=== PATIENT | female | born 1985 | race Caucasian/White ===

== ENCOUNTER 2021-05-14 19:37 | Emergency (ER) | payer OTHER, SELFPAY ==
--- NOTE | ~2021-05-14 | XR_ITS ---
EXAMINATION: XR ANKLE, LEFT CLINICAL INFORMATION: Fall. Pain. Swelling. COMPARISON: None TECHNIQUE: AP, lateral, and mortise views of the left ankle. FINDINGS: Soft tissue swelling is seen more so laterally. Underlying bony structures are unremarkable. I do not appreciate any acute fracture or dislocation. Ankle mortise appears intact. Incidental tiny calcaneal heel spur at the attachment point of the plantar aponeurosis. XR/XR ankle LT min 3V IMPRESSION: Lateral soft tissue swelling but no acute fracture or dislocation
[2021-05-14 19:52] VITALS: BP 155/97; PULSE 63; RESP 16; TEMP 36.8; O2SAT 100; BMI 25.7
--- NOTE | 2021-05-14 20:24 | ED.LOWEXIN ---
HPI - Extremity Injury (Lower) General Chief Complaint: Extremity Injury, Lower Stated Complaint: ankle inj Time Seen by Provider: 05/14/21 20:24 Source: patient Mode of arrival: ambulatory Limitations: no limitations History of Present Illness HPI Narrative: rolled left ankle yesterday now with increased swelling and pain. Patient heard a crack and pop complaint: ankle injury Onset (ago): day(s) Injury: Left: ankle Place: street/outdoors Severity: mild Relieving factors: nothing Exacerbating factors: weight bearing Associated symptoms: snap/pop sensation Related Data Previous Rx's Medication Instructions Recorded naproxen 500 mg tablet (Naprosyn) 500 mg PO BID #20 tab 05/14/21 Allergies Allergy/AdvReac Type Severity Reaction Status Date / Time Penicillins Allergy Unknown Verified 05/14/21 20:00 Review of Systems Constitutional: Constitutional: Reports no additional constitutional complaints Eyes: Eyes: Reports no additional eye complaints ENT: Denies dizziness Cardiovascular: Cardiovascular: Reports no additional cardiovascular complaints Respiratory: Respiratory: Reports as per HPI Gastrointestinal: Gastrointestinal: Reports no additional gastrointestinal complaints Genitourinary: Genitourinary: Reports no additional female genitourinary complaints Musculoskeletal: Musculoskeletal: Reports no additional musculoskeletal complaints Integumentary/Breasts: Skin/Breast: Denies rash Neurologic: Reports system reviewed and no additional complaints, except as documented, Denies dizziness and Denies Sensory deficit (Neuro) Psychiatric: Psychiatric: Denies anxiety [facility] Past Medical History Medical History Crohn's disease Hypertension Social History Social History Advance Directives: No Advance Directives Information Provided: No Patient : No Physical Exam Vital Signs: Vital Signs: Last Vital Signs Temp 98.2 F 05/14/21 19:52 Pulse 63 05/14/21 19:52 Resp 16 05/14/21 19:52 BP 155/97 H 05/14/21 19:52 Pulse Ox 100 05/14/21 19:52 Body Mass Index 25.7 Const: General: healthy appearing Nutritional Appearance: average body habitus Orientation/consciousness: oriented to person and patient oriented x3 Limitations: no limitations HENMT: Head: Yes normal to inspection Ears: external ears normal General nose exam: Normal external nose present Mouth: Normal oral and palatal mucosa present and oropharynx normal Throat: Yes posterior oropharynx normal Eyes: General: appearance normal, both eyes and all related structures Neck: Other: supple Neck: Yes normal visual inspection Chest: Chest palpation & inspection: normal inspection of the chest Resp: Auscultation: clear to auscultation bilaterally Cardio: Jugular venous distension: no JVD Rate: regular rate Rhythm: regular rhythm Heart sounds: S1 normal heart sound present and S2 normal heart sound present GI: Inspection: Yes normal to inspection Palpation (GI): Soft to palpation, nontender and No hepatosplenomegaly present Auscultation: normal bowel sounds : General: Yes no CVA tenderness Back/Spine/Pelvis: Back: no CVA tenderness Skin: General skin exam: no rashes or lesions noted Neuro: General: oriented to person and patient oriented x3 Cranial nerves: Yes CN's II-XII intact bilaterally Motor exam (neuro): 5/5 motor strength present throughout Sensory Exam: No Sensory deficit (Neuro) Extrem: Other: left ankle with swelling and ecchymosis Psych: Appearance: grossly normal Course Reevaluation(s) Reevaluation #1: no fracture, impression is ankle sprain Time: 20:52 MDM - Extremity Injury (Lower) Imaging Data left ankle: Radiologist's impression: IMPRESSION: Lateral soft tissue swelling but no acute fracture or dislocation Discharge Plan Discharge Clinical Impression: Ankle sprain and strain Patient Disposition: Home, Self-Care Instructions: Ankle Sprain (ED) Prescriptions: New naproxen [Naprosyn] 500 mg tablet 500 mg PO BID Qty: 20 RF: 0 Referrals: Todd Elmore MD [Primary Care Provider] - 1 week
== END 2021-05-14 21:36 | disposition home or self-care (01) ==
PROVIDERS: Emergency Provider Emergency Medicine; PCP Internal Medicine
DX: S93.402A Sprain of unspecified ligament of left ankle, initial encounter (principal); M25.572 Pain in left ankle and joints of left foot; X50.1XXA Overexertion from prolonged static or awkward postures, initial encounter; Y93.9 Activity, unspecified; Y92.9 Unspecified place or not applicable; Y99.9 Unspecified external cause status; Z79.899 Other long term (current) drug therapy
CPT/HCPCS: 73610; 99283; 99284

== ENCOUNTER 2023-11-10 15:33 | Emergency (ER) | payer OTHER, SELFPAY ==
--- NOTE | ~2023-11-10 | XR_ITS ---
EXAMINATION: XR SHOULDER, LEFT CLINICAL INFORMATION: Pain, injury. COMPARISON: None available. TECHNIQUE: Three views of the left shoulder. FINDINGS: The bones and soft tissues are normal. No fracture. Glenohumeral and acromioclavicular alignment is anatomic with normal joint space. No abnormal soft tissue calcifications. XR/XR shoulder LT min 2V IMPRESSION: Normal left shoulder.
[2023-11-10 16:17] VITALS: PULSE 68; RESP 18; TEMP 36.7; O2SAT 99; BMI 25.7
--- NOTE | 2023-11-10 16:19 | ED_ITS ---
HPI - General Adult General Chief complaint: Extremity Injury, Upper Stated complaint: left shoulder work injury Time Seen by Provider: 11/10/23 17:11 Source: patient Mode of arrival: ambulatory Limitations: no limitations History of Present Illness HPI narrative: Patient is a 38 year old assigned female at with no reported medical history presenting to the emergency department today with left shoulder pain. Patient states that she was at work when she pulled approximately 90lbs laterally. Patient states that her left shoulder is painful through range of motion but at rest is OK. Patient denies any head strike, loss of consciousness, dizziness, lightheadedness, abdominal pain, nausea, vomiting, fever, chills, blurry vision, double vision, loss of vision, chest pain, difficulty breathing, shortness of breath, back pain, night sweats, pain with urination, increased urinary frequency, increased urinary urgency, blood in her urine or stool, syncope or a near syncopal episode, bowel incontinence, bladder incontinence, bowel retention, bladder retention, or any other complaints at this time. Onset (ago): minute(s) Location: left and upper extremity Radiation: non-radiation Severity: mild Severity scale (1-10): 3 Quality: aching and dull Pain Consistency: intermittent Relieving factors: none Exacerbating factors: movement Associated symptoms: denies other symptoms Treatments prior to arrival: none Related Data Previous Rx's Medication Instructions Recorded naproxen 500 mg tablet (Naprosyn) 500 mg PO BID #20 tabs 05/14/21 Allergies Allergy/AdvReac Type Severity Reaction Status Date / Time Penicillins Allergy Unknown Verified 11/10/23 16:17 Review of Systems Constitutional: Constitutional: Reports no additional constitutional complaints, Denies chills, Denies fever(s) and Denies night sweats Eyes: Eyes: Reports no additional eye complaints, Denies blurry vision, Denies change in vision, Denies diplopia, Denies eye discharge, Denies loss of vision and Denies eye pain ENT: Denies dizziness Cardiovascular: Cardiovascular: Reports no additional cardiovascular complaints, Denies chest pain, Denies lightheadedness, Denies Loss of Consciousness and Denies dyspnea Respiratory: Respiratory: Reports no additional respiratory complaints and Denies dyspnea Gastrointestinal: Gastrointestinal: Reports no additional gastrointestinal complaints, Denies abdominal pain, Denies melena, Denies hematochezia, Denies change in bowel habits and Denies change in stool character Genitourinary: Genitourinary: Denies hematuria, Denies urinary frequency, Denies dysuria, Denies urinary incontinence, Denies urinary hesitancy and Denies urinary urgency Musculoskeletal: Musculoskeletal: Reports no additional musculoskeletal complaints, Denies numbness and Denies tingling Comments: left shoulder pain Neurologic: Denies dizziness, Denies loss of vision, Denies numbness and Denies tingling Psychiatric: Psychiatric: Reports no additional psychiatric complaints Endocrine: Endocrine: Reports no additional endocrine complaints Hematologic/Lymphatic: Hematologic/Lymphatic: Reports no additional hematologic/lymphatic complaints Allergic/Immunologic: Allergic/Immunologic: Reports no additional allergic/immunologic complaints PMFSH Past Medical History Attestation statement: The following information was validated with the patient. Source: old records reviewed and nursing notes reviewed Medical History Hypertension Crohn's disease Social History Social History Advance Directives: No Advance Directives Information Provided: No Physical Exam ED Vital Signs: Vital Signs - 24 hr 11/10/23 16:17 11/10/23 17:20 Temperature 98.1 F 98.1 F Pulse Rate 68 68 Respiratory Rate 18 18 Blood Pressure 123/87 Pulse Oximetry 99 99 Oxygen Delivery Method Room Air Room Air BMI result Body Mass Index 25.7 Const General: cooperative, no acute distress, alert and awake Nutritional Appearance: well nourished Orientation/consciousness: patient oriented x3 Limitations: no limitations [facility] Head: Yes normal to inspection and Yes atraumatic Ears: hearing grossly normal bilaterally and external ears normal General nose exam: Normal external nose present, no nasal discharge noted and no epistaxis Face and sinus: Yes normal facial exam, No abrasion and No laceration Mouth: Normal oral and palatal mucosa present, no drooling and no muffled voice Eyes General: appearance normal, both eyes and all related structures Periorbital: periorbital findings normal Eyelids: Yes eyelids normal Conjunctivae: conjunctivae normal Pupils: Equal, round and reactive pupils present EOM: EOMs intact bilaterally Neck Neck: Yes normal visual inspection, Yes full ROM and Yes no lymphadenopathy Chest Chest palpation & inspection: normal inspection of the chest Resp Effort & Inspection: normal respiratory effort and able to speak in complete sentences GI Inspection: Yes normal to inspection Neuro General: patient oriented x3 and moves all extremities Cranial nerves: Yes Equal, round and reactive pupils present Cognition (Neuro): normal cognition Motor exam (neuro): 5/5 motor strength present throughout Sensory Exam: Normal double simultaneous stimulation for sensation Coordination: [id number] test normal Extrem Other: pain with ROM of the left shoulder General: Yes normal to inspection and Yes capillary refill normal Psych Appearance: grossly normal Mental Status: mental status grossly normal Affect: normal affect Attitude: cooperative Thought process: Normal thought process present Thought content: Normal thought content present Insight: Good insight present (Psych) Course Course Course Narrative: RME performed by Anamaria Tyler PA-C. Patient is a 38 year old assigned female at presenting to the emergency department with left shoulder pain. Detailed physical exam and review of systems are deferred to the scrapper. Imaging ordered. Patient placed back in the waiting room pending room availability and results. Medical Decision Making Medical Decision Making MDM Narrative: Patient is a 38 year old assigned female at with no reported medical history presenting to the emergency department today with left shoulder pain. Patient's physical exam showed pain of the left shoulder with ROM. Patient's left shoulder x-ray showed no acute process. I explained my physical exam findings as well as all test results to the patient. I answered all questions asked by the patient. I explained to the patient that there is concern for a left rotator cuff injury. I stressed the importance of the patient taking her medication as prescribed. I stressed the importance of the patient following up with her primary care provider and an orthopedic provider. I stressed the importance of the patient returning to the emergency department immediately if her symptoms were to worsen or if she were to develop any dizziness, shortness of breath, difficulty breathing, chest pain, blurry vision, loss of vision, nausea, vomiting, abdominal pain, fever, chills, back pain, or any other complaints. Patient verbalized agreement and understanding with this treatment plan and discharge. Differential Diagnosis Differential Diagnoses: The differential diagnosis associated with the presentation includes Shoulder pain Rotator cuff injury Shoulder strain Shoulder sprain Admission/Observation Consideration of admission/observation: Escalation of care including admission/observation considered Patient would have been admitted to the hospital had her work up had any findings where hospital admission was appropriate and her clinical presentation warranted hospital admission. Independent Interpretation I performed an independent interpretation of an: Plain X-Ray Interpretation: My interpretation is in agreement with the radiologist's impression of this imaging study. EXAMINATION: XR SHOULDER, LEFT CLINICAL INFORMATION: Pain, injury. COMPARISON: None available. TECHNIQUE: Three views of the left shoulder. FINDINGS: The bones and soft tissues are normal. No fracture. Glenohumeral and acromioclavicular alignment is anatomic with normal joint space. No abnormal soft tissue calcifications. XR/XR shoulder LT min 2V IMPRESSION: Normal left shoulder. Dictated By: Mely Lugo Signed By: Electronically signed by Mely Lugo 11/10/23 6830 Radiology Impression Discussion of test interpretation with radiology: I have reviewed the radiologist's reading. Discharge Plan Discharge Clinical Impression: Shoulder sprain Patient Disposition: Home, Self-Care Instructions: Shoulder Sprain (ED) Additional Instructions: Follow up with your primary care provider, an orthopedic provider, and work connection. Return to the emergency department immediately if your symptoms worsen or if you develop any dizziness, shortness of breath, difficulty breathing, chest pain, blurry vision, loss of vision, nausea, vomiting, abdominal pain, fever, chills, back pain, or any other complaints. Prescriptions: No Action naproxen [Naprosyn] 500 mg tablet 500 mg PO BID Qty: 20 0RF Referrals: [facility] [place] [facility] [Provider Group] (Call to establish and follow up with a primary care provider. If you already have a primary care provider, please follow up with them.) [facility] [place] [facility] [Provider Group] (Call to establish and follow up with a primary care provider. If you already have a primary care provider, please follow up with them.) [facility] [place] [facility] [Provider Group] (Call to establish and follow up with a primary care provider. If you already have a primary care provider, please follow up with them.) [facility] [place] [facility] [Provider Group] (Call to establish and follow up with an orthopedic provider.) [facility] [Provider Group] (Call to establish and follow up with work connection.) Stand Alone Forms: Work/School Release Interventions: ED Discharge Assessment Last Done: 11/10/23 17:20 Discharge Date/Time: 11/10/23 17:21 Print Language: Korean
[2023-11-10 17:20] VITALS: BP 123/87; PULSE 68; RESP 18; TEMP 36.7; O2SAT 99
== END 2023-11-10 17:21 | disposition home or self-care (01) ==
PROVIDERS: Emergency Provider Internal Medicine
DX: S43.402A Unspecified sprain of left shoulder joint, initial encounter (principal); I10 Essential (primary) hypertension; X50.9XXA Other and unspecified overexertion or strenuous movements or postures, initial encounter; Y93.9 Activity, unspecified; Y92.89 Other specified places as the place of occurrence of the external cause; Y99.0 Civilian activity done for income or pay
CPT/HCPCS: 73030; 99282; 99283

== ENCOUNTER 2023-11-14 09:53 | Outpatient (AMB) | payer OTHER, SELFPAY ==
--- NOTE | 2023-11-14 09:56 | MHC.OFFVIS ---
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 [place] [facility] [place] where xrays were taken and referred to orthopedics. Currently she has a constant throbbing. Limited ROM, states pain with lifting above. States tingling sensation in fingers and her arms feels heavy. She avoids taking pain medication/anti-inflammatories due to crohns disease. Finds relief with icing and heat. 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 She was seen at ED the same day where x-rays were performed and she was referred to our office. She currently states she has constant throbbing pain and limited ROM in her shoulder which is aggravated with lifting. She also c/o tingling sensation in her fingers and reports her arms feel heavy. She finds relief with icing and heat. She has a history of Crohn?s disease and avoid taking any pain medications or anti-inflammatories. 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 Review of Systems Const All systems reviewed & are unremarkable except as noted in HPI and below Physical Exam Vital Signs: BMI result Body Mass Index 25.7 Const General: cooperative, healthy appearing, comfortable, no acute distress, well developed and alert Orientation/consciousness: patient oriented x3 HEENT Head: Yes normal to inspection, Yes normocephalic and Yes atraumatic Eyes General: appearance normal, both eyes and all related structures Resp Effort & Inspection: normal respiratory effort and able to speak in complete sentences Cardio Rate: regular rate Peripheral pulses: Peripheral pulses 2+ throughout GI Palpation (GI): Soft to palpation Skin Lesions: no lesions Rashes: no rashes Neuro General: patient oriented x3 Extrem Other: Left shoulder normal to inspection. Tenderness over the proximal bicep tendon of the shoulder. Forward flexion to 175, external rotation to 90, internal rotation to S1. 5/5 RTC strength. Positive O'Briens. Negative Dill and cross body abduction. NVI. Results Reviewed Results Reviewed: xrays of the left shoulder obtained int he ED on 11/10/23 show type 2 acromion Assessment & Plan Assessment & Plan (1) Biceps tendonitis on left: Code(s): M75.22 - Bicipital tendinitis, left shoulder (2) Tendonitis of left rotator cuff: Code(s): M75.82 - Other shoulder lesions, left shoulder Plan We discussed options which include PT, NSAIDs and injections. The patient will defer on the injection today and proceed with PT and NSAIDs. She will remain out of work till I see her back in 6 weeks, sooner if needed. If symptoms persist, the patient will contact me for an injection, otherwise, PRN. Orders: Orders PT Evaluation and Treatment Today M75.22 - Bicipital tendinitis, left shoulder, M75.82 - Other shoulder lesions, left shoulder Patient Instructions: Scribed for Tomasz Best PA-C, by Douglas Leone medical communication specialist, on 11/13/2023 at 10:00 AM EST. I, Tomasz Best PA-C, have personally reviewed and agree with the information entered by the scribe. Coding Level of Care Code New Pt Level 3 (93582) Diagnoses Biceps tendonitis on left M75.22 Tendonitis of left rotator cuff M75.82
[2023-11-14 10:04] VITALS: BMI 25.7
== END 2023-11-14 10:46 | disposition home or self-care (01) ==
LOC: HO.HOS 09:53
PROVIDERS: Visit Provider Physician Assistant
DX: M75.22 Bicipital tendinitis, left shoulder (principal); M75.82 Other shoulder lesions, left shoulder
CPT/HCPCS: 99203

== ENCOUNTER → 2023-11-14 09:53 | Outpatient (BNVA) | payer OTHER, SELFPAY | PROVIDERS: Visit Provider Physician Assistant | DX: M75.22 Bicipital tendinitis, left shoulder (principal); M75.82 Other shoulder lesions, left shoulder | CPT/HCPCS: 99202 ==

== ENCOUNTER 2023-12-25 11:09 | Outpatient (AMB) | payer OTHER, SELFPAY ==
[2023-12-25 11:25] VITALS: BMI 27.5
--- NOTE | 2023-12-25 11:25 | A.OFFVIS_ITS ---
Vital Signs 12/25/23 11:25 Height 5 ft 4 in Weight 160 lb BMI 27.5 Intake Visit Reasons: OV-left shoulder s/p therapy Intake Note: Bela is a 38 year old female, right hand dominant, who presents today for follow up on left shoulder s/o therapy. Patient reports the pain has been ongoing, 7 on the 0-10 pain scale. She is using ibuprofen for the pain with minimal relief. Patient reprots she stopped doing PT becase it was worsening her pain and not helping . 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 She continues to have shoulder pain which r adiates up to her neck. She rates the pain as 7 on the scale of 0-10. She also reports neck stiffness and numbness in her shoulder with laying on her left side radiating to her elbow. She is taking ibuprofen for pain with minimal relief. She had attended physical therapy which she discontinued as it worsened her pain. 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 Review of Systems Const All systems reviewed & are unremarkable except as noted in HPI and below Physical Exam Vital Signs: BMI result Body Mass Index 27.5 Const General: cooperative, healthy appearing, comfortable, no acute distress, well developed and alert Orientation/consciousness: patient oriented x3 HEENT Head: Yes normal to inspection, Yes normocephalic and Yes atraumatic Eyes General: appearance normal, both eyes and all related structures Resp Effort & Inspection: normal respiratory effort and able to speak in complete sentences Cardio Rate: regular rate Peripheral pulses: Peripheral pulses 2+ throughout GI Palpation (GI): Soft to palpation Skin Lesions: no lesions Rashes: no rashes Neuro General: patient oriented x3 Extrem Other: Left shoulder normal to inspection.She has significant hypersensitivity to the left trap which extends into the scapular region and down the deltoid. She has pain with mcclure and discomfort with RTC strength testing. She has weakness on the left with bicep flexion, wrist flexion and ext against resistance when compared to the contralateral side. She also exhibits weakness in the left deltoid region with abduction against resistance. 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 Once this is complete, she will see me back to discuss the results to determine the next step in her treatment. She will remain out of work untill she sees us back with the results. Orders: Orders NE nerve conduction velocity Today R20.0 - Anesthesia of skin, R20.2 - Paresthesia of skin NE electromyogram (EMG) Today R20.0 - Anesthesia of skin, R20.2 - Paresthesia of skin MR shoulder LT wo con Today S46.009A - Unspecified injury of muscle(s) and tendon(s) of the rotator cuff of unspecified shoulder, initial encounter Patient Instructions: Scribed for Tomasz Best PA-C, by Douglas Leone medical technologist clinical, on 12/25/2023 at 11:15 AM EST. I, Tomasz Best PA-C, have personally reviewed and agree with the information entered by the scribe. Coding Level of Care Code Est Pt Level 3 (25327) Diagnoses Biceps tendonitis on left M75.22 Tendonitis of left rotator cuff M75.82 Brachioplexitis G54.0
== END 2023-12-25 12:09 | disposition home or self-care (01) ==
PROVIDERS: Visit Provider Physician Assistant
DX: M75.22 Bicipital tendinitis, left shoulder (principal); M75.82 Other shoulder lesions, left shoulder; G54.0 Brachial plexus disorders
CPT/HCPCS: 99213

== ENCOUNTER → 2023-12-25 11:09 | Outpatient (BNVA) | payer OTHER, SELFPAY | PROVIDERS: Visit Provider Physician Assistant | DX: M75.22 Bicipital tendinitis, left shoulder (principal); M75.82 Other shoulder lesions, left shoulder; G54.0 Brachial plexus disorders | CPT/HCPCS: 99212 ==

== ENCOUNTER 2024-01-21 12:54 | Outpatient (REF) | payer OTHER, SELFPAY ==
--- NOTE | 2024-01-21 12:58 | EMG_ITS ---
Chief complaint: Numbness left 5th digit, elbow and shoulder pain. Started after pulling 90 lb weight that was jammed. Reason for referral: Evaluate for brachial plexopathy Referred by: Tomasz COOPER Procedure done: Left upper extremity NCS/EMG Precautions and/or limitations: None The limb temperature was monitored continuously and remained between 32-36 degrees C during the performance of the NCS. Ulnar motor NCS was performed with moderate elbow flexion between 70-90 degrees, with across-elbow distance of 10 cm. Nerve Conduction Studies Anti Sensory Summary Table ?Stim Site NR Onset (ms) Norm Onset (ms) Peak (ms) Norm Peak (ms) O-P Amp (?V) Norm O-P Amp Site1 Site2 Delta-0 (ms) Dist (cm) Andrew (m/s) Norm Andrew (m/s) Left Lat Ante Brach Cutan Anti Sensory (Lat Forearm) Lat Biceps ? 0.3 0.4 27.3 Lat Biceps Lat Forearm 0.3 0.0 Left Med Ante Brach Cutan Anti Sensory Run #1 (Med Forearm) Elbow NR Elbow Med Forearm 0.0 Left Med Ante Brach Cutan Anti Sensory Run #2 (Med Forearm) Elbow NR Elbow Med Forearm 0.0 Left Median Anti Sensory (2nd Digit) Wrist ? 2.0 2.8 <3.6 57.3 >10 Wrist 2nd Digit 2.0 14.0 70 Left Radial Anti Sensory (Thumb) Forearm ? 1.5 2.0 <3.1 32.6 Forearm Thumb 1.5 0.0 Left Ulnar Anti Sensory (5th Digit) Wrist ? 2.1 3.0 <3.7 32.2 >15.0 Wrist 5th Digit 2.1 14.0 67 Motor Summary Table ?Stim Site NR Onset (ms) Norm Onset (ms) O-P Amp (mV) Norm O-P Amp iAmp (mV) Amp (1st) (%) Site1 Site2 Delta-0 (ms) Dist (cm) Andrew (m/s) Norm Andrew (m/s) Left Median Motor (Abd Poll Brev) Wrist ? 2.6 <3.9 15.6 >4.5 17.8 100.0 Elbow Wrist 3.3 20.0 61 >45 Elbow ? 5.9 14.5 16.7 92.9 Left Ulnar Motor (Abd Dig Minimi) Wrist ? 2.4 <3.0 9.9 >5 11.4 100.0 B Elbow Wrist 2.9 18.0 62 >45 B Elbow ? 5.3 10.1 11.6 102.0 A Elbow B Elbow 1.4 10.0 71 >45 A Elbow ? 6.7 10.0 11.6 101.0 EMG ?Side Muscle Nerve Root Ins Act Fibs Psw Amp Dur Poly Recrt Int Pat Comment Left 1stDorInt Ulnar C8-T1 Nml Nml Nml Nml Nml 0 Nml Complete Left FlexCarRad Median C6-7 Nml Nml Nml Nml Nml 0 Nml Complete Left Biceps Musculocut C5-6 Nml Nml Nml Nml Nml 0 Nml Complete Left Triceps Radial C6-7-8 Nml Nml Nml Nml Nml 0 Nml Complete Left Deltoid Axillary C5-6 Nml Nml Nml Nml Nml 0 Nml Complete Left Supraspinatus SupraScap C5-6 Nml Nml Nml Nml Nml 0 Nml Complete Paraspinal EMG ?Side Muscle Nerve Root Ins Act Fibs Psw Comment Left Cervical Upper Rami Nml Nml Nml Left Cervical Mid Rami Nml Nml Nml Left Cervical Lower Rami Nml Nml Nml FINDINGS: Left medial antebrachial cutaneous sensory nerve showed absent response. All other nerves tested were within normal. Concentric needle EMG was performed in selected muscles of the left upper extremity and cervical paraspinals. Study did not reveal signs of electric abnormalities as shown in the table below. IMPRESSION: 1. This is a minimally abnormal study. 2. 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 3. There is no electrodiagnostic evidence for median neuropathy, ulnar neuropathy, or cervical radiculopathy. CLINICAL COMMENT: Cannot rule out a left lower trunk brachial plexopathy. Consider imaging brachial plexopathy if symptoms do not improve with conservative management and/or other workup such as the scheduled shoulder MRI is negative. Thank you for your kind referral. Sophia Sosa MD, ANGELINA Board Certified, [place] Board [employer] and Rehabilitation (ABPMR) Board Certified, [place] Board of Electrodiagnostic Medicine (ABEM) [place] [id number] [facility]
== END 2024-01-21 12:55 | disposition home or self-care (01) ==
LOC: HO.NEURO 12:54
PROVIDERS: PCP Internal Medicine; Visit Provider Physician Assistant
DX: R20.0 Anesthesia of skin (principal); R20.2 Paresthesia of skin
CPT/HCPCS: 95886; 95910

== ENCOUNTER → 2024-01-21 12:58 | Outpatient (BNV) | payer OTHER, SELFPAY | PROVIDERS: PCP Internal Medicine; Visit Provider Physical Medicine & Rehabilitation | DX: G54.0 Brachial plexus disorders (principal) | CPT/HCPCS: 95886; 95910 ==

== ENCOUNTER 2024-01-26 19:41 | Outpatient (REF) | payer OTHER, SELFPAY ==
--- NOTE | ~2024-01-26 | MR_ITS ---
EXAMINATION: MR SHOULDER WITHOUT CONTRAST, LEFT CLINICAL INFORMATION: Unspecified injury of muscle and tendon. Patient reports injury, pain. COMPARISON: X-ray 11/10/2023. TECHNIQUE: MRI of the shoulder without contrast was performed on a high-field scanner. FINDINGS: ROTATOR CUFF: Mild heterogeneous signal in the conjoined fibers of the supraspinatus and infraspinatus tendons may reflect mild tendinosis. No measurable tendon defect or retraction is seen. Teres minor is intact. Mild-moderate subscapularis tendinosis, deep surface fraying/ill-defined partial tear No muscle atrophy or fatty in.filtration. BICEPS: Intact. CORACOACROMIAL ARCH: The undersurface of the acromion is curved with no subacromial spur. Minimal acromioclavicular arthritis. LABRUM/CAPSULE: No definite labral tear is seen. Intact inferior capsule. GLENOHUMERAL JOINT/MARROW: No evidence of acute fracture. No suspicious marrow signal changes. No significant joint effusion. MR/MR shoulder LT wo con IMPRESSION: 1. Possible mild tendinosis in the conjoined fibers of the supraspinatus and infraspinatus tendons. No measurable tendon defect or retraction is seen. 2. Mild-moderate subscapularis tendinosis, deep surface fraying/ill-defined partial tear. 3. Minimal acromioclavicular arthritis.
== END 2024-01-26 19:42 | disposition home or self-care (01) ==
LOC: HO.MRI 19:41
PROVIDERS: PCP Internal Medicine; Visit Provider Physician Assistant
DX: S46.002A Unspecified injury of muscle(s) and tendon(s) of the rotator cuff of left shoulder, initial encounter (principal)
CPT/HCPCS: 73221

== ENCOUNTER 2024-02-13 12:36 | Outpatient (AMB) | payer OTHER, SELFPAY ==
--- NOTE | 2024-02-13 12:47 | A.OFFVIS_ITS ---
Vital Signs 02/13/24 12:48 Height 5 ft 4 in Weight 160 lb BMI 27.5 Intake Visit Reasons: OV- MRI and EMG fu Intake Note: Bela, 38 yr old female, presents today for a MRI and EMG f/u. Allergies Penicillins Allergy (Verified 02/13/24 12:49) Unknown Medication List - Last Reconciled 02/13/24 by Tomasz Best PA-C lisinopril 5 mg PO DAILY HPI HPI OV- MRI and EMG fu: Details: 38-year-old female who returns to the office today for an MRI and EMG review for LUE. She continues to have pain and weakness in her shoulder with some days being better than the other. She also woke up with spasms in the back of her shoulder this morning. She has not had physical therapy sessions since November due to scheduling conflict. 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 Review of Systems Const All systems reviewed & are unremarkable except as noted in HPI and below Physical Exam Vital Signs: BMI result Body Mass Index 27.5 Const General: cooperative, healthy appearing, comfortable, no acute distress, well developed and alert Orientation/consciousness: patient oriented x3 HEENT Head: Yes normal to inspection, Yes normocephalic and Yes atraumatic Eyes General: appearance normal, both eyes and all related structures Resp Effort & Inspection: normal respiratory effort and able to speak in complete sentences Cardio Rate: regular rate Peripheral pulses: Peripheral pulses 2+ throughout GI Palpation (GI): Soft to palpation Skin Lesions: no lesions Rashes: no rashes Neuro General: patient oriented x3 Extrem Other: Left shoulder normal to inspection.She has significant hypersensitivity to the left trap which extends into the scapular region and down the deltoid. She has pain with mcclure and discomfort with RTC strength testing. She has weakness on the left with bicep flexion, wrist flexion and ext against resistance when compared to the contralateral side. She also exhibits weakness in the left deltoid region with abduction against resistance. Results Reviewed Results Reviewed: MR shoulder LT wo con 01/26/24 IMPRESSION: 1. Possible mild tendinosis in the conjoined fibers of the supraspinatus and infraspinatus tendons. No measurable tendon defect or retraction is seen. 2. Mild-moderate subscapularis tendinosis, deep surface fraying/ill-defined partial tear. 3. Minimal acromioclavicular arthritis. IMPRESSION: EMG 01/21/24 1. This is a minimally abnormal study. 2. 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 3. There is no electrodiagnostic evidence for median neuropathy, ulnar neuropathy, or cervical radiculopathy. 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 No surgical intervention is warranted to her left shoulder but I would like to continue working on physical therapy for postural training and RTC strengthening. As for her EMG, there is evidence of a lower truck plexopathy which is causing her weakness and hypersensitivity in the LUE. I encouraged she continues to work on physical therapy for desensitization. I did explain that nerve injuries can be slow healing and recommend her to follow-up with our tower hand for continued follow-up on her plexopathy. She will remain out of work until she is seen by our tower hand Dr. Chavira for further recommendations. Patient Instructions: Scribed for Tomasz Best PA-C, by Douglas Leone medical receptionist assistant, on 02/13/2024 at 12:45 PM EST.? I, Tomasz Best PA-C, have personally reviewed and agree with the information entered by the scribe. Coding Level of Care Code Est Pt Level 3 (49342) Diagnoses Biceps tendonitis on left M75.22 Tendonitis of left rotator cuff M75.82 Brachioplexitis G54.0
[2024-02-13 12:48] VITALS: BMI 27.5
== END 2024-02-13 13:18 | disposition home or self-care (01) ==
PROVIDERS: PCP Internal Medicine; Visit Provider Physician Assistant
DX: M75.22 Bicipital tendinitis, left shoulder (principal); M75.82 Other shoulder lesions, left shoulder; G54.0 Brachial plexus disorders; Z04.2 Encounter for examination and observation following work accident
CPT/HCPCS: 99213

== ENCOUNTER → 2024-02-13 12:36 | Outpatient (BNVA) | payer OTHER, SELFPAY | PROVIDERS: PCP Internal Medicine; Visit Provider Physician Assistant | DX: M75.22 Bicipital tendinitis, left shoulder (principal); M75.82 Other shoulder lesions, left shoulder; G54.0 Brachial plexus disorders | CPT/HCPCS: 99212 ==

== ENCOUNTER 2024-03-04 08:41 | Outpatient (AMB) | payer OTHER, SELFPAY ==
--- NOTE | 2024-03-04 08:47 | A.OFFVIS_ITS ---
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 She was referred by Tomasz. Patient states she has been out of work since October since they have no light duty work for her. She re-started PT again this week, was given more exercises and has been working on her ROM and strength. She states she is now able to get her hair tied up if she puts her head down and to her that is improvement. Was playing frisbee last week at the beach and reached out to try stop the frisbee and states this caused extremely sharp pains in her left shoulder she describes as a 10/10 on the pain scale. She would like a work note today. Allergies Penicillins Allergy (Verified 03/04/24 08:50) Unknown Medication List - Last Reconciled 03/04/24 by Sophia Sosa MD lisinopril 5 mg PO DAILY HPI Comments Details: Patient continues to have limited range of motion due to pain with side abduction. Pain also affects the left biceps area. Example was trying to reach to catch a ball to the left side cause her severe pain. She has pain when trying to put deodorant on the left. She feels tingling on left 4th and 5th digits when she is walking with arms downwards. It also feels weak that she has not able to grab things with left hand. She does continue to be active, doing lower body exercises, hiking and walking. MRI shoulder showed tendinosis of supraspinatus and subscapularis, with mild arthritis and AC joint. EMG minimally abnormal. Only abnormality seen was on left LAC and MAC nerves. Rest were within normal. This could raise suspicion for lower trunk plexopathy, but I explained that these are small nerves that are difficult to obtain even in normal subjects/patient's. She is in physical therapy. They are doing range of motion and stretching. Pain during therapy 6/10. They have not started any weightlifting. She is doing mostly isometrics. At rest her pain is 4/10. She has not had any type of injections at all. She has not tried any topicals. She had history of CRPS in right ankle from a previous injury. This resolve with topical medications. So she is wondering if he can do the same. She has history of Crohn's disease. Unable to tolerate most oral medications. She is currently out work. Employer can not retain light duty restrictions. 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 MSK: Inspection reveals appropriate head and neck positioning. There is tenderness and tightness on left upper trapezius and biceps, reproducing radiation and tingling down to her left hand/fingers. Cervical ROM was full. Spurling's sign negative. No scapular winging. No atrophy. Limited adduction to 45 degrees, soft end feel, with pain. Pain with external rotation. Positive lift-off test left side. Empty can test is positive left. Drop arm test is negative. Speed's test is mildly positive left. Neer's test is positive left. Hawkin's test is positive left. Strength is 5/5 in all muscle groups tested. No increased tone noted. Neurological: If without pain, there is no focal weakness. Limited left shoulder range of motion due to pain. Salinas?s negative bilaterally. Babinski was down going bilaterally. Clonus was negative. Gait is non-antalgic without loss of balance. Patient was able to perform heel walk and toe walk. Results Reviewed Results Reviewed: EMG by 01/21/24 IMPRESSION: 1. This is a minimally abnormal study. 2. 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 3. There is no electrodiagnostic evidence for median neuropathy, ulnar neuropathy, or cervical radiculopathy. MRI SHOULDER Ordering Physician: Tomasz Best PA-C Date of Service: 01/26/24 Procedure(s): MR shoulder LT wo con Accession Number(s): [id number] cc: Na Mustafa MD; Tomasz Best PA-C~ EXAMINATION: MR SHOULDER WITHOUT CONTRAST, LEFT CLINICAL INFORMATION: Unspecified injury of muscle and tendon. Patient reports injury, pain. COMPARISON: X-ray 11/10/2023. TECHNIQUE: MRI of the shoulder without contrast was performed on a high-field scanner. FINDINGS: ROTATOR CUFF: Mild heterogeneous signal in the conjoined fibers of the supraspinatus and infraspinatus tendons may reflect mild tendinosis. No measurable tendon defect or retraction is seen. Teres minor is intact. Mild-moderate subscapularis tendinosis, deep surface fraying/ill-defined partial tear No muscle atrophy or fatty in.filtration. BICEPS: Intact. CORACOACROMIAL ARCH: The undersurface of the acromion is curved with no subacromial spur. Minimal acromioclavicular arthritis. LABRUM/CAPSULE: No definite labral tear is seen. Intact inferior capsule. GLENOHUMERAL JOINT/MARROW: No evidence of acute fracture. No suspicious marrow signal changes. No significant joint effusion. MR/MR shoulder LT wo con IMPRESSION: 1. Possible mild tendinosis in the conjoined fibers of the supraspinatus and infraspinatus tendons. No measurable tendon defect or retraction is seen. 2. Mild-moderate subscapularis tendinosis, deep surface fraying/ill-defined partial tear. 3. Minimal acromioclavicular arthritis. 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 She does have tightness on left upper trapezius which on palpation reproduced tingling on her fingers. Discussed that EMG findings were minimally abnormal only. I am more convinced that her symptoms are rotator cuff and myofascial, more than plexopathy. I think we should address treatment towards decreasing pain on her left shoulder. Recommend trial of shoulder steroid injection. Recommend also trigger point injections to tight muscles such as trapezius. We will schedule this as soon as prior authorization is obtained. She does well with topical medications. Does not do well much with oral medications due to history of Crohn's. We can try lidocaine topical patches. Instructions given. Prescription sent to pharmacy. Continue physical therapy, with stretching and range of motion. Can slowly gradually increase weights, could begin with bands 1st, as long as within pain- free limits. Our ultimate goal is to return her back to work. I have requested for her to get me her official job description so we would know what we are working towards. For now, she may remain out of work until the next time I see her. This is a WC case. Assessment and plan discussed with patient, and patient was agreeable. All questions were answered thoroughly. Follow-up 4 weeks, although I might see her sooner if injections are approved. Sophia Sosa MD, ANGELINA Board Certified, [place] [employer] and Rehabilitation (ABPMR) Board Certified, [place] Board [employer] Electrodiagnostic Medicine (ABEM) Medications: New lidocaine 5% leave on most painful area for up to 12 hrs 1 patch topical DAILY 30 ea 3RF Coding Level of Care Code Est Pt Level 4 (67894) Diagnoses Tendonitis of left rotator cuff M75.82 Biceps tendonitis on left M75.22 Brachioplexitis G54.0 Myofascial pain M79.18
[2024-03-04 08:49] VITALS: BMI 27.5
== END 2024-03-04 09:21 | disposition home or self-care (01) ==
PROVIDERS: PCP Internal Medicine; Visit Provider Physical Medicine & Rehabilitation
DX: M75.82 Other shoulder lesions, left shoulder (principal); M75.22 Bicipital tendinitis, left shoulder; G54.0 Brachial plexus disorders; M79.18 Myalgia, other site
CPT/HCPCS: 99213

== ENCOUNTER → 2024-03-04 08:41 | Outpatient (BNVA) | payer OTHER, SELFPAY | PROVIDERS: PCP Internal Medicine; Visit Provider Physical Medicine & Rehabilitation | DX: M75.82 Other shoulder lesions, left shoulder (principal); M75.22 Bicipital tendinitis, left shoulder; G54.0 Brachial plexus disorders; M79.18 Myalgia, other site | CPT/HCPCS: 99212 ==

== ENCOUNTER 2024-03-30 11:00 | Outpatient (RCR) | payer OTHER, SELFPAY ==
--- NOTE | 2023-11-28 16:38 | MHC.PT.EP ---
[facility] [place] Office [place] Office [address] Mervin Woodward [address] [phone] F: [phone] F: [phone] F: [phone] F: [phone] Physical Therapy Plan of Care Date of Evaluation: 11/28/23 Date of Surgery: NA Diagnosis: L BICEPS TENDONITIS Assessment: Pt IS 38 YO F REFERRED TO PT FROM [facility]THO ([facility]) WITH L SHLDER BICEPS TENDONITIS FROM WORK INJURY (SIDESTEPPING PULL) ON 11/10/23. PRESENTS WITH LIMITED SHLDER ROM (CAPSULAR) AND STRENGTH WITH PAIN AND DECREASED UE USE. 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 HAD XRAY REPORT WHICH WAS NEGATIVE (ALTHOUGH NOAH TOLD HER SHE HAS A CURVED BONE (ACROMION)). SHOULD BENEFIT FROM PT TO ADDRESS THESE ISSUES. MAY NEED MRI TO R/O RC INVOLVEMENT Frequency and Duration: The patient will be seen 2X/WK X 6 WKS Short Term Goals: 1. INCREASED POSTURE AWARENESS AND AWARENESS SHLDER CARE 2. NO L UE PARESTHESIA 3. I HEP WITH DC EX PLAN Halfway Goals: 1. INCREASED L SHLDER ROM 20-30 DEGREES T/O 2. INCREASED L UE STRENGTH AT LEAST 1/2 MM GRADE T/O 3. DECREASED L SHLDER PAIN AT LEAST 50% WITH ADLS 4. RTW Treatment Plan: Modalities to reduce pain, spasms and effusion. Manual therapy to restore motion and function. Therapeutic exercise to improve strength and flexibility. Neuromuscular re-education for posture and balance. Therapeutic activities to return to functional activities of daily living. Electronically signed by: DALLAS FIGUEROA PT Please sign and return to therapist. Thank you for your referral.
--- NOTE | 2024-06-15 14:27 | MHC.PT.DC ---
[facility] [place] [facility] [place] [facility] [place] [facility] [address] Mervin Woodward [address] [phone] F: [phone] F: [phone] F: [phone] F: [phone] Physical Therapy Discharge Report Diagnosis: L BICEPS TENDONITIS Date of Surgery: NA Date of Evaluation: 11/28/23 Date of Discharge: 06/15/24 Treatments to Date: 12 Cancellations to Date: No Shows to Date: Discharge Status: Discharge Summary: Pt LAST SEEN ON 03/30/24. PER ASSESSMENT AT THAT SESSION Pt able to robert full flexion position and ER Normal at this time Chart on hold until after shots given and MD consult ON 06/15/24 PER CHART/PHYSIATRY NOTE FROM 06/04/24, Pt HAS HAD TP INJECTIONS WITH SOME RELIEF. MAY BE RESTARTING PT/WORK CONDITIONING. WILL DC THIS CHART FOR NOW AND AWAIT NEW ORDERS FOR RE-EVAL Electronically signed by: DALLAS FIGUEROA PT Please sign and return to therapist. Thank you for your referral.
== END 2024-06-15 14:27 | disposition home or self-care (01) ==
LOC: HO.PT 11:00
PROVIDERS: PCP Internal Medicine; Visit Provider Physician Assistant
DX: M75.22 Bicipital tendinitis, left shoulder (principal); M75.82 Other shoulder lesions, left shoulder
CPT/HCPCS: 97014; 97110; 97140; 97161; 97164; 97530; 97535

== ENCOUNTER 2024-04-01 09:03 | Outpatient (AMB) | payer OTHER, SELFPAY ==
--- NOTE | 2024-04-01 09:11 | A.OFFVIS_ITS ---
Vital Signs 04/01/24 09:23 Height 5 ft 4 in Weight 160 lb BMI 27.5 Intake Visit Reasons: OV- Left Biceps Tendonitis Trigger Injection #1 Intake Note: Bela is a 38 year old female who presents to the office today for injection. Allergies Penicillins Allergy (Verified 04/01/24 09:22) Unknown Medication List - Last Reconciled 04/01/24 by Sophia Sosa MD lidocaine 5% 1 patch topical DAILY lisinopril 5 mg PO DAILY HPI Comments Details: Here for left shoulder steroid injection and trigger point injection to upper trapezius 1. 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 The distal, lateral, and posterior edges of the left acromion are palpated. Area is cleansed with betadine solution. A 27 gauge needle is inserted just inferior to the posterolateral edge of the acromion. The needle is directed toward the opposite nipple. A solution containing [40 mg] Kenalog and [3 ml] of 2% Lidocaine is injected. Using a different 27 gauge needle, dry needled a trigger point on left upper trapezius, subsequently injecting 1 mL of 2% lidocaine. Patient tolerated procedure well without complications. Post-injection instructions given. 99502-Zmcigbr Point Injection 1 or 2 sites All charges added?: Procedure code (CPT) selection complete Assessment & Plan Assessment & Plan (1) Biceps tendonitis on left: Code(s): M75.22 - Bicipital tendinitis, left shoulder Category: Medical (2) Tendonitis of left rotator cuff: Code(s): M75.82 - Other shoulder lesions, left shoulder Category: Medical (3) Myofascial pain: Code(s): M79.18 - Myalgia, other site Category: Medical Plan Tolerated procedure well. To be scheduled for 2 more trigger point injections, at least 2 weeks apart. Discussed that we find longer term relief with a series of trigger point injections instead of just 1 time. She has been discharged from PT and given home exercises. I agree with that. To home exercises for now. Continue current work restrictions (off work for now) until injection series have been completed, at least 4 more weeks. WC did not approve Lidoderm patches. May trial [id number] icy hot Lidoderm roller instead if not cost prohibitive. Assessment and plan discussed with patient, and patient was agreeable. All questions were answered thoroughly. Sophia Sosa MD, ANGELINA Board Certified, [place] [employer] and Rehabilitation (ABPMR) Board Certified, [place] Board of Electrodiagnostic Medicine (ABEM) Orders: Orders AMB Trigger Point Injection Today M75.22 - Bicipital tendinitis, left shoulder, M75.82 - Other shoulder lesions, left shoulder, M79.18 - Myalgia, other site AMB Joint Injection/Aspiration Today M75.22 - Bicipital tendinitis, left shoulder, M75.82 - Other shoulder lesions, left shoulder Coding Level of Care Code Procedure Only Diagnoses Biceps tendonitis on left M75.22 Tendonitis of left rotator cuff M75.82 Myofascial pain M79.18 CPT Codes Coding - 69271 Large joint: 07998 - Large joint ([id number]) Therapeutic Injection - Ther Injection 1: 19969-Psbenbp Point Injection 1 or 2 sites ([id number])
[2024-04-01 09:23] VITALS: BMI 27.5
== END 2024-04-01 12:37 | disposition home or self-care (01) ==
PROVIDERS: PCP Internal Medicine; Visit Provider Physical Medicine & Rehabilitation
DX: M75.22 Bicipital tendinitis, left shoulder (principal); M75.82 Other shoulder lesions, left shoulder; M79.18 Myalgia, other site; Z04.2 Encounter for examination and observation following work accident
CPT/HCPCS: 20552; 20610

== ENCOUNTER → 2024-04-01 09:03 | Outpatient (BNVA) | payer OTHER, SELFPAY | PROVIDERS: PCP Internal Medicine; Visit Provider Physical Medicine & Rehabilitation | DX: M75.22 Bicipital tendinitis, left shoulder (principal); M75.82 Other shoulder lesions, left shoulder; M79.18 Myalgia, other site | CPT/HCPCS: 20552; 20610; J3301 ==

== ENCOUNTER 2024-04-28 09:41 | Outpatient (AMB) | payer OTHER, SELFPAY ==
--- NOTE | 2024-04-28 09:46 | A.OFFVIS_ITS ---
Vital Signs 04/28/24 09:51 Height 5 ft 4 in Weight 160 lb BMI 27.5 Intake Visit Reasons: OV - Left Trapezius Trigger Injection #2 Intake Note: Bela is a 38 year old female who presents today for her Left Trapezius Trigger Injection #2. Patient reports her trap does not feel as stiff as before. She still is unable to stretch out her arm in the morning time due to sharp pain still shooting through her arm. When she reaches for objects the pain does not last as long as it did before and it it intermittent so she believes she is improving. 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 Conset obtained. Trigger points palpated on left upper trapezius, deltoid, biceps, 1 on each. 1 ml of 2% Lidocaine injected in each site, total of 3 mL. Patient tolerated procedure well. Post-injection instructions given. 91687-Odfeqwh Point Injection 3 or more All charges added?: Procedure code (CPT) selection complete Assessment & Plan Assessment & Plan (1) Myofascial pain: Code(s): M79.18 - Myalgia, other site Category: Medical Plan Tolerated procedure well. Mentioned to her that we may consider PRP injection to the biceps tendon if the series of trigger point injections do not help. Assessment and plan discussed with patient, and patient was agreeable. All questions were answered thoroughly. Sophia Sosa MD, ANGELINA Board Certified, [place] Board [employer] and Rehabilitation (ABPMR) Board Certified, [place] Board [employer] Electrodiagnostic Medicine (ABEM) Orders: Orders AMB Trigger Point Injection Today M79.18 - Myalgia, other site Coding Level of Care Code Procedure Only Diagnoses Myofascial pain M79.18 CPT Codes Therapeutic Injection - Ther Injection 2: 98050-Jaahmjv Point Injection 3 or more ([id number])
[2024-04-28 09:51] VITALS: BMI 27.5
== END 2024-04-28 10:21 | disposition home or self-care (01) ==
PROVIDERS: PCP Internal Medicine; Visit Provider Physical Medicine & Rehabilitation
DX: M79.602 Pain in left arm (principal); M79.18 Myalgia, other site
CPT/HCPCS: 20553

== ENCOUNTER → 2024-04-28 09:41 | Outpatient (BNVA) | payer OTHER, SELFPAY | PROVIDERS: PCP Internal Medicine; Visit Provider Physical Medicine & Rehabilitation | DX: M79.18 Myalgia, other site (principal) | CPT/HCPCS: 20553 ==

== ENCOUNTER 2024-05-20 11:09 | Outpatient (AMB) | payer OTHER, SELFPAY ==
--- NOTE | 2024-05-20 11:14 | MHC.OFFVIS ---
Vital Signs 05/20/24 11:27 Height 5 ft 4 in Weight 160 lb BMI 27.5 Intake Visit Reasons: Left Trapezius Trigger Injection #3 Intake Note: Bela is a 38 year old female who presents to the office today for Left Trapezius Trigger Injection #3. 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 Conset obtained. Trigger points palpated on muscles listed above. 1 ml of 2% Lidocaine injected in each site, total of 3 mL. Patient tolerated procedure well. Post-injection instructions given. 11233-Rrwctai Point Injection 3 or more All charges added?: Procedure code (CPT) selection complete Assessment & Plan Assessment & Plan (1) Myofascial pain: Code(s): M79.18 - Myalgia, other site Category: Medical Plan Next follow up in 2 weeks. Assessment and plan discussed with patient, and patient was agreeable. All questions were answered thoroughly. Sophia Sosa MD, ANGELINA Board Certified, [place] Board [employer] Physical Medicine and Rehabilitation (ABPMR) Board Certified, [place] Board [employer] Electrodiagnostic Medicine (ABEM) Orders: Orders AMB Trigger Point Injection Today M79.18 - Myalgia, other site Coding Level of Care Code Procedure Only Diagnoses Myofascial pain M79.18 CPT Codes Therapeutic Injection - Ther Injection 2: 65359-Nzpjugm Point Injection 3 or more ([id number])
[2024-05-20 11:27] VITALS: BMI 27.5
== END 2024-05-20 11:40 | disposition home or self-care (01) ==
PROVIDERS: PCP Internal Medicine; Visit Provider Physical Medicine & Rehabilitation
DX: M25.512 Pain in left shoulder (principal); M79.18 Myalgia, other site
CPT/HCPCS: 20553

== ENCOUNTER → 2024-05-20 11:09 | Outpatient (BNVA) | payer OTHER, SELFPAY | PROVIDERS: PCP Internal Medicine; Visit Provider Physical Medicine & Rehabilitation | DX: M79.18 Myalgia, other site (principal) | CPT/HCPCS: 20553 ==

== ENCOUNTER 2024-06-04 11:44 | Outpatient (AMB) | payer OTHER, SELFPAY ==
--- NOTE | 2024-06-04 11:49 | MHC.OFFVIS ---
Intake Visit Reasons: OV- Left Trapezius Trigger Injection-F/U Intake Note: Bela is a 38 year old female who presents today for a follow up s/p Left Trapezius Trigger Injections. Pt states the injection did help. She states she doesn't have as much pain as before. Pt states she does still have some occasional pain after trying to do little things like reaching above her head. Allergies Penicillins Allergy (Verified 06/04/24 11:49) Unknown HPI Comments Details: Patient intiially seen by Ortho, then continued further care under Physiatry (oh). She had symptoms suggestive of ulnar neuropathy vs shoulder pathology. MRI shoulder showed tendinosis of supraspinatus and subscapularis, with mild arthritis and AC joint. EMG minimally abnormal. Only abnormality seen was on left LAC and MAC nerves. Rest were within normal. This could raise suspicion for lower trunk plexopathy, but I explained that these are small nerves that are difficult to obtain even in normal subjects/patient's. There was no evidence for ulnar neuropathy. She has done extensive physical therapy. We've done left shoulder subacromial injection and trigger point injections. She had history of CRPS in right ankle from a previous injury. This resolve with topical medications. She has history of Crohn's disease. Unable to tolerate most oral medications. She is currently out work. Employer can not retain light duty restrictions. 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 Patient states the injection did help. She states she doesn't have as much pain as before. Patient states she does still have some occasional pain after trying to do little things like reaching above her head. Last weekend, she tried doing gardening, but aggravated her pain so much. Denies anymore numbness in her fingers. She has been out of work since injury. 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 She has done physical therapy up until we started trigger point injections, 2 months ago. 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 MSK: Inspection reveals appropriate head and neck positioning. There is tenderness and tightness on left upper trapezius and biceps, reproducing radiation and tingling down to her left hand/fingers. Cervical ROM was full. Spurling's sign negative. Limit shoulder abduction, past 80 degrees actively; but full passively with pain. Empty can test is positive left but points anteriorly to left biceps insertional area. Drop arm test is negative. Speed's test is mildly positive left. Negative Tinel sign on elbow elbow. Negative carpal compression. Tender along biceps. Tender left subacromial. Strength is 5/5 in all muscle groups tested. No increased tone noted. Neurological: If without pain, there is no focal weakness. Limited left shoulder range of motion and give-way weakness due to pain. Rest of MMT 5/5. Salinas?s negative bilaterally. Babinski was down going bilaterally. Clonus was negative. Gait is non-antalgic without loss of balance. Results Reviewed Results Reviewed: EMG by 01/21/24 IMPRESSION: 1. This is a minimally abnormal study. 2. 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 3. There is no electrodiagnostic evidence for median neuropathy, ulnar neuropathy, or cervical radiculopathy. MRI SHOULDER Ordering Physician: Tomasz Best PA-C Date of Service: 01/26/24 Procedure(s): MR shoulder LT wo con Accession Number(s): [id number] cc: Na Mustafa MD; Tomasz Best PA-C~ EXAMINATION: MR SHOULDER WITHOUT CONTRAST, LEFT CLINICAL INFORMATION: Unspecified injury of muscle and tendon. Patient reports injury, pain. COMPARISON: X-ray 11/10/2023. TECHNIQUE: MRI of the shoulder without contrast was performed on a high-field scanner. FINDINGS: ROTATOR CUFF: Mild heterogeneous signal in the conjoined fibers of the supraspinatus and infraspinatus tendons may reflect mild tendinosis. No measurable tendon defect or retraction is seen. Teres minor is intact. Mild-moderate subscapularis tendinosis, deep surface fraying/ill-defined partial tear No muscle atrophy or fatty in.filtration. BICEPS: Intact. CORACOACROMIAL ARCH: The undersurface of the acromion is curved with no subacromial spur. Minimal acromioclavicular arthritis. LABRUM/CAPSULE: No definite labral tear is seen. Intact inferior capsule. GLENOHUMERAL JOINT/MARROW: No evidence of acute fracture. No suspicious marrow signal changes. No significant joint effusion. MR/MR shoulder LT wo con IMPRESSION: 1. Possible mild tendinosis in the conjoined fibers of the supraspinatus and infraspinatus tendons. No measurable tendon defect or retraction is seen. 2. Mild-moderate subscapularis tendinosis, deep surface fraying/ill-defined partial tear. 3. Minimal acromioclavicular arthritis. 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 Limited ROM of left shoulder by pain. Paresthesias/numbness resolved now. No signs of cervical radiculopathy or myelopathy. Referring to Pain Management - consult with Dr. Mensah for consideration of injection to biceps insertional site, under US guidance, possible PRP? Consider block or PNS for CRPS? I have not formally diagnosed her with CRPS yet but given past history of CRPS on ankle, maybe she has susceptibility. She is open to restarting PT. I think best to actually do work conditioning on top of PT. Referral placed, for approval. She is determined to go back to work in the future. I have also reviewed her job description. OOW for now but goal to RTW after work conditioning. Assessment and plan discussed with patient, and patient was agreeable. All questions were answered thoroughly. Follow up 4 weeks. Sophia Sosa MD, ANGELINA Board Certified, [place] Board [employer] Physical Medicine and Rehabilitation (ABPMR) Board Certified, [place] Board [employer] Electrodiagnostic Medicine (ABEM) Orders: Orders PT Evaluation and Treatment Today G54.0 - Brachial plexus disorders, M75.22 - Bicipital tendinitis, left shoulder, M75.82 - Other shoulder lesions, left shoulder, M79.18 - Myalgia, other site Referrals Pain Management Referral G54.0 - Brachial plexus disorders, M75.22 - Bicipital tendinitis, left shoulder, M75.82 - Other shoulder lesions, left shoulder, M79.18 - Myalgia, other site Coding Level of Care Code Est Pt Level 4 (80973) Diagnoses Biceps tendonitis on left M75.22 Tendonitis of left rotator cuff M75.82 Brachioplexitis G54.0 Myofascial pain M79.18
== END 2024-06-04 12:13 | disposition home or self-care (01) ==
PROVIDERS: PCP Internal Medicine; Visit Provider Physical Medicine & Rehabilitation
DX: M75.22 Bicipital tendinitis, left shoulder (principal); M75.82 Other shoulder lesions, left shoulder; G54.0 Brachial plexus disorders; M79.18 Myalgia, other site
CPT/HCPCS: 99213

== ENCOUNTER → 2024-06-04 11:44 | Outpatient (BNVA) | payer OTHER, SELFPAY | PROVIDERS: PCP Internal Medicine; Visit Provider Physical Medicine & Rehabilitation | DX: M75.22 Bicipital tendinitis, left shoulder (principal); M75.82 Other shoulder lesions, left shoulder; G54.0 Brachial plexus disorders; M79.18 Myalgia, other site | CPT/HCPCS: 99212 ==

== ENCOUNTER 2024-06-25 09:36 | Outpatient (AMB) | payer OTHER, SELFPAY ==
--- NOTE | 2024-06-25 09:37 | MHC.OFFVIS ---
Vital Signs 06/25/24 09:39 Height 5 ft 4 in Weight 145 lb BMI 24.9 BP 140/77 H Blood Pressure Location Rt brachial Position Sitting Respiration 14 Pulse 57 Pulse Source Pulse Oximeter Pulse Oximetry (%) 98 Oxygen Delivery Method Room Air Intake Visit Reasons: Myalgia, other site Allergies Penicillins Allergy (Verified 07/02/24 10:20) Unknown Medication List - Last Reconciled 06/25/24 by Anamaria Myles LPN lidocaine 5% 1 patch topical DAILY lisinopril 5 mg PO DAILY HPI HPI Myalgia, other site: Details: 39-year-old female who presents today to the office for evaluation of myalgia. She reports left biceps tendonitis. The pain is localized in the back side of the shoulder that intermittently radiates upward to the neck. She has shooting pain and numbness down her arm. She rates her pain at 3/10 that worsens to 5-6/10 in intensity. She states that her pins and needle sensations with numbness has resolved. She is still unable to stretch out her arm in the morning due to sharp pain still shooting through her arm. She states that she does still have some occasional pain after trying to do little things like reaching above her head. 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 up a ramp. She has to pull it and put it on post release, but the pulleys were frozen and all the weight and resistance were forced on her muscles.? She had a history of CRPS in her right ankle from an injury while training for marathon and fell down the mountain. This resolves with topical medications. She has a history of Crohn's disease. She has been out of work since October since they have no light duty work for her. 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 She resumed physical therapy again on March 17. She has been working on her ROM and strength. She states she is now able to get her hair tied up if she puts her head down, and to her that is improvement. She had an injection on the back of the shoulder and TPI with another provider with no relief.?She has not tried acupuncture in the past. She has Worker's Compensation insurance. 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 Alert and oriented. Mood and affect appropriate. Follows and participates in conversation appropriately. Respiratory effort is unlabored. Able to transition from sit to stand unassisted. Ambulates with bilaterally normal heel strike and toe off. There is a tenderness overlying the left coracoid and proximal biceps region. She has pain in the proximal pec insertion around the coracoid and the clavicle that radiates into the short head of the bicep?s tendon. There is also some limitation of range of motion secondary to supraspinatus and infraspinatus tendinosis. Range?of?motion?is?limited?to?90??extension. Internal rotation of the left shoulder is also significantly limited. Results Reviewed Results Reviewed: 01/26/2024: MR SHOULDER WITHOUT CONTRAST, LEFT FINDINGS: ROTATOR CUFF: Mild heterogeneous signal in the conjoined fibers of the supraspinatus and infraspinatus tendons may reflect mild tendinosis. No measurable tendon defect or retraction is seen. Teres minor is intact. Mild-moderate subscapularis tendinosis, deep surface fraying/ill-defined partial tear No muscle atrophy or fatty in.filtration. BICEPS: Intact. CORACOACROMIAL ARCH: The undersurface of the acromion is curved with no subacromial spur. Minimal acromioclavicular arthritis. LABRUM/CAPSULE: No definite labral tear is seen. Intact inferior capsule. GLENOHUMERAL JOINT/MARROW: No evidence of acute fracture. No suspicious marrow signal changes. No significant joint effusion. IMPRESSION: 1. Possible mild tendinosis in the conjoined fibers of the supraspinatus and infraspinatus tendons. No measurable tendon defect or retraction is seen. 2. Mild-moderate subscapularis tendinosis, deep surface fraying/ill-defined partial tear. 3. Minimal acromioclavicular arthritis. 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 She continues to be involved in physical therapy, which has been providing slow improvement. However, her pain symptoms continue to be significantly bothersome and limiting in her activities. I will plan for a left shoulder PRP injections with ultrasound targeted towards the short head of the biceps muscle as well as the supraspinatus and the infraspinatus tendons. Discussed the risks and benefits of the procedure with the patient in detail. All questions were answered. The patient is on board with the plan. In the future, we can also consider hydrodissection of the PEC 1 & 2 planes. We also discussed acupuncture, if possible, to be covered by her worker compensation insurance and the trial of dry needling during physical therapy as a next step instead of continuing with trigger point injections. I also do not think she would benefit from further steroid injections. If the combination of physical therapy and PRP therapy is not sufficient in relieving her symptoms, we will consider a trial of peripheral nerve stimulation, likely at the suprascapular nerve with potential for bimodal stimulation of the left deltoid and left suprascapular nerve. Justification for interventional therapy: ? Patient with average pain > 6/10 ? Patient has exhausted conservative therapy oral medication, steroid injections, physical therapy. ? Actively performing physical therapy. ? Previous steroid and TPI injection provided minimal to no relief. . Patient has a good understanding of their pain condition and has appropriate mental and social support. Scribed for Dr. Mensah by Ziyad Worrell, medical recruiter, on 06/25/2024. I, Dr. Mensah, have personally reviewed and agree with the information entered by the scribe. Coding Level of Care Code New Pt Level 4 (05499) Diagnoses Tendonitis of left rotator cuff M75.82 Brachioplexitis G54.0 Biceps tendonitis on left M75.22
[2024-06-25 09:39] VITALS: BP 140/77; PULSE 57; RESP 14; O2SAT 98; BMI 24.9
== END 2024-06-25 10:05 | disposition home or self-care (01) ==
LOC: HO.PMC 09:36
PROVIDERS: PCP Internal Medicine; Visit Provider Internal Medicine
DX: M75.82 Other shoulder lesions, left shoulder (principal); G54.0 Brachial plexus disorders; M75.22 Bicipital tendinitis, left shoulder
CPT/HCPCS: 99204

== ENCOUNTER → 2024-06-25 09:36 | Outpatient (BNVA) | payer OTHER, SELFPAY | PROVIDERS: PCP Internal Medicine; Visit Provider Internal Medicine | DX: M75.82 Other shoulder lesions, left shoulder (principal); G54.0 Brachial plexus disorders; M75.22 Bicipital tendinitis, left shoulder | CPT/HCPCS: 99202 ==

== ENCOUNTER 2024-07-02 10:09 | Outpatient (AMB) | payer OTHER, SELFPAY ==
--- NOTE | 2024-07-02 10:18 | A.OFFVIS_ITS ---
Vital Signs 07/02/24 10:19 Height 5 ft Weight 145 lb BMI 28.3 Intake Visit Reasons: OV- Left Trapezius Trigger Injection-F/U Intake Note: Bela is a 39 year old female who presents today for a follow up visit of her left trapezius trigger injections. Patient reports she started PT and she finds it very helpful. She met w/ Pain Management and they advised her to talk with PT about dry needling. Dry needling at PT and light stim to needles in back of shoulder, PT will be doing this once a week. She did this once and says they did not use a lot of needles. The physical therapist said next visit they will work up the use of more needles. Pain Management is waiting for WC to approve PRP. She believes she is making small improvement. She would like to discuss work status and needs a work note for today. Her goal is to return to work by 2024. Allergies Penicillins Allergy (Verified 07/02/24 10:20) Unknown Medication List - Last Reconciled 07/02/24 by Sophia Sosa MD lidocaine 5% 1 patch topical DAILY lisinopril 5 mg PO DAILY HPI Comments Details: Patient intiially seen by Ortho, then continued further care under Physiatry (me). She had symptoms suggestive of ulnar neuropathy vs shoulder pathology. MRI shoulder showed tendinosis of supraspinatus and subscapularis, with mild arthritis and AC joint. EMG minimally abnormal. Only abnormality seen was on left LAC and MAC nerves. Rest were within normal. This could raise suspicion for lower trunk plexopathy, but I explained that these are small nerves that are difficult to obtain even in normal subjects/patient's. There was no evidence for ulnar neuropathy. She has done extensive physical therapy. We've done left shoulder subacromial injection and trigger point injections. She had history of CRPS in right ankle from a previous injury. This resolve with topical medications. She has history of Crohn's disease. Unable to tolerate most oral medications. She is currently out work. Employer can not retain light duty restrictions. 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 Patient states the injection did help. She states she doesn't have as much pain as before. Patient states she does still have some occasional pain after trying to do little things like reaching above her head. Last weekend, she tried doing gardening, but aggravated her pain so much. Denies anymore numbness in her fingers. She has been out of work since injury. 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 She has done physical therapy up until we started trigger point injections, 2 months ago. Since last visit, she has seen Pain Management Dr. Mensah who has recommended PRP injection to shoulder. Waiting on approval. She has started PT at [facility] in [place], doing strengthening and ROM, towards work conditioning. She has started dry needling with them, one session so far, to do again next week. PT is twice a week. She feels there are some small improvements. 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 MSK: Inspection reveals appropriate head and neck positioning. There is tenderness and tightness on left upper trapezius and biceps, with shoulder movement. Cervical ROM was full. Spurling's sign negative. Shoulder ROM left still limited with pain. Empty can test is negative, pain is more on trapezius. Speed's test is mildly positive left. Neurological: If without pain, there is no focal weakness. Limited left shoulder range of motion and give-way weakness due to pain. Rest of MMT 5/5. Salinas?s negative bilaterally. Babinski was down going bilaterally. Clonus was negative. Gait is non-antalgic without loss of balance. Results Reviewed Results Reviewed: EMG by 01/21/24 IMPRESSION: 1. This is a minimally abnormal study. 2. 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 3. There is no electrodiagnostic evidence for median neuropathy, ulnar neuropathy, or cervical radiculopathy. MRI SHOULDER Ordering Physician: Tomasz Best PA-C Date of Service: 01/26/24 Procedure(s): MR shoulder LT wo con Accession Number(s): [id number] cc: Na Mustafa MD; Tomasz Best PA-C~ EXAMINATION: MR SHOULDER WITHOUT CONTRAST, LEFT CLINICAL INFORMATION: Unspecified injury of muscle and tendon. Patient reports injury, pain. COMPARISON: X-ray 11/10/2023. TECHNIQUE: MRI of the shoulder without contrast was performed on a high-field scanner. FINDINGS: ROTATOR CUFF: Mild heterogeneous signal in the conjoined fibers of the supraspinatus and infraspinatus tendons may reflect mild tendinosis. No measurable tendon defect or retraction is seen. Teres minor is intact. Mild-moderate subscapularis tendinosis, deep surface fraying/ill-defined partial tear No muscle atrophy or fatty in.filtration. BICEPS: Intact. CORACOACROMIAL ARCH: The undersurface of the acromion is curved with no subacromial spur. Minimal acromioclavicular arthritis. LABRUM/CAPSULE: No definite labral tear is seen. Intact inferior capsule. GLENOHUMERAL JOINT/MARROW: No evidence of acute fracture. No suspicious marrow signal changes. No significant joint effusion. MR/MR shoulder wo con IMPRESSION: 1. Possible mild tendinosis in the conjoined fibers of the supraspinatus and infraspinatus tendons. No measurable tendon defect or retraction is seen. 2. Mild-moderate subscapularis tendinosis, deep surface fraying/ill-defined partial tear. 3. Minimal acromioclavicular arthritis. I reviewed records from the following: Orthopedics Assessment & Plan Assessment & Plan (1) Myofascial pain: Code(s): M79.18 - Myalgia, other site Category: Medical (2) Biceps tendonitis on left: Code(s): M75.22 - Bicipital tendinitis, left shoulder Category: Medical Plan Appreciate consult notes from Dr. Mensah. Await approval for PRP injection. Continue dry needling with PT. Continue PT twice a week, range of motion and strengthening towards were conditioning. Continue current restrictions/out of work status for the next 4 weeks. But we are hopeful that she is making small gains. Assessment and plan discussed with patient, and patient was agreeable. All questions were answered thoroughly. Follow up 4 weeks. Sophia Sosa MD, ANGELINA Board Certified, [place] Board of Physical Medicine and Rehabilitation (ABPMR) Board Certified, [place] Board of Electrodiagnostic Medicine (ABEM) Coding Level of Care Code Est Pt Level 3 (92720) Diagnoses Myofascial pain M79.18 Biceps tendonitis on left M75.22
[2024-07-02 10:19] VITALS: BMI 28.3
== END 2024-07-02 10:36 | disposition home or self-care (01) ==
PROVIDERS: PCP Internal Medicine; Visit Provider Physical Medicine & Rehabilitation
DX: M79.18 Myalgia, other site (principal); M75.22 Bicipital tendinitis, left shoulder
CPT/HCPCS: 99213

== ENCOUNTER → 2024-07-02 10:09 | Outpatient (BNVA) | payer OTHER, SELFPAY | PROVIDERS: PCP Internal Medicine; Visit Provider Physical Medicine & Rehabilitation | DX: M79.18 Myalgia, other site (principal); M75.22 Bicipital tendinitis, left shoulder | CPT/HCPCS: 99212 ==

== ENCOUNTER 2024-08-06 08:55 | Outpatient (AMB) | payer OTHER, SELFPAY ==
[2024-08-06 08:58] VITALS: BMI 28.3
--- NOTE | 2024-08-06 08:58 | MHC.OFFVIS ---
Vital Signs 08/06/24 08:58 Height 5 ft Weight 145 lb BMI 28.3 Intake Visit Reasons: OV- Left Trapezius Trigger Injection-F/U Intake Note: Bela is a 39 year old female who presents today for a follow up visit of her left trapezius. States she noticing a difference and is doing well with P.T needling. States her insurance denied her P2P injection request but is happy needling is working and doing well. Allergies Penicillins Allergy (Verified 08/06/24 09:05) Unknown Medication List - Last Reconciled 08/06/24 by Sophia Sosa MD lidocaine 5% 1 patch topical DAILY lisinopril 5 mg PO DAILY HPI Comments Details: Patient intiially seen by Ortho, then continued further care under Physiatry (me). She had symptoms suggestive of ulnar neuropathy vs shoulder pathology. MRI shoulder showed tendinosis of supraspinatus and subscapularis, with mild arthritis and AC joint. EMG minimally abnormal. Only abnormality seen was on left LAC and MAC nerves. Rest were within normal. This could raise suspicion for lower trunk plexopathy, but I explained that these are small nerves that are difficult to obtain even in normal subjects/patient's. There was no evidence for ulnar neuropathy. She has done extensive physical therapy. We've done left shoulder subacromial injection and trigger point injections. She had history of CRPS in right ankle from a previous injury. This resolve with topical medications. She has history of Crohn's disease. Unable to tolerate most oral medications. Patient states the shoulder injection and trigger point injections did help. She states she doesn't have as much pain as before. She has been out of work since injury. 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 She has seen Pain Management Dr. Mensah who has recommended PRP injection to shoulder. However that has been denied by . Discharged from [facility] 06/15/24. She has started PT at [facility] in [place], doing strengthening and ROM, towards work conditioning. She has started dry needling with them. They have now been doing strengthening exercises. She feels there are mall improvements. Though noted some increase in pain 6/10 after some sessions. Doing now deltoid and trapezius needling. Goal of back to FT duty in August 2024. PT agrees that it is realistic goal. 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 MSK: Inspection reveals appropriate head and neck positioning. Shoulder ROM appears to be full on forward flexion; full on abduction and external rotation but with pain. Empty can test is slightly positive with pain. Speed's test is now negative. Neurological: If without pain, there is no focal weakness. Limited left shoulder range of motion and give-way weakness due to pain. Rest of MMT 5/5. Salinas?s negative bilaterally. Gait is non-antalgic without loss of balance. Results Reviewed Results Reviewed: EMG by 01/21/24 IMPRESSION: 1. This is a minimally abnormal study. 2. 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 3. There is no electrodiagnostic evidence for median neuropathy, ulnar neuropathy, or cervical radiculopathy. MRI SHOULDER Ordering Physician: Tomasz Best PA-C Date of Service: 01/26/24 Procedure(s): MR shoulder LT wo con Accession Number(s): [id number] cc: Na Mustafa MD; Tomasz Best PA-C~ EXAMINATION: MR SHOULDER WITHOUT CONTRAST, LEFT CLINICAL INFORMATION: Unspecified injury of muscle and tendon. Patient reports injury, pain. COMPARISON: X-ray 11/10/2023. TECHNIQUE: MRI of the shoulder without contrast was performed on a high-field scanner. FINDINGS: ROTATOR CUFF: Mild heterogeneous signal in the conjoined fibers of the supraspinatus and infraspinatus tendons may reflect mild tendinosis. No measurable tendon defect or retraction is seen. Teres minor is intact. Mild-moderate subscapularis tendinosis, deep surface fraying/ill-defined partial tear No muscle atrophy or fatty in.filtration. BICEPS: Intact. CORACOACROMIAL ARCH: The undersurface of the acromion is curved with no subacromial spur. Minimal acromioclavicular arthritis. LABRUM/CAPSULE: No definite labral tear is seen. Intact inferior capsule. GLENOHUMERAL JOINT/MARROW: No evidence of acute fracture. No suspicious marrow signal changes. No significant joint effusion. MR/MR shoulder LT wo con IMPRESSION: 1. Possible mild tendinosis in the conjoined fibers of the supraspinatus and infraspinatus tendons. No measurable tendon defect or retraction is seen. 2. Mild-moderate subscapularis tendinosis, deep surface fraying/ill-defined partial tear. 3. Minimal acromioclavicular arthritis. I reviewed records from the following: Orthopedics Assessment & Plan Assessment & Plan (1) Myofascial pain: Code(s): M79.18 - Myalgia, other site Category: Medical (2) Biceps tendonitis on left: Code(s): M75.22 - Bicipital tendinitis, left shoulder Category: Medical Plan Continue dry needling with PT and work conditioning. She is making progress. Continue current restrictions/out of work status for the next 4 weeks. Goal to return FT without restrictions by mid August is very reasonable. Assessment and plan discussed with patient, and patient was agreeable. All questions were answered thoroughly. Follow up 4 weeks. Sophia Sosa MD, ANGELINA Board Certified, [place] Board of Physical Medicine and Rehabilitation (ABPMR) Board Certified, [place] Board of Electrodiagnostic Medicine (ABEM) Coding Level of Care Code Est Pt Level 4 (92190) Diagnoses Myofascial pain M79.18 Biceps tendonitis on left M75.22
== END 2024-08-06 09:24 | disposition home or self-care (01) ==
PROVIDERS: PCP Internal Medicine; Visit Provider Physical Medicine & Rehabilitation
DX: M79.18 Myalgia, other site (principal); M75.22 Bicipital tendinitis, left shoulder
CPT/HCPCS: 99213

== ENCOUNTER 2024-09-03 08:54 | Outpatient (AMB) | payer OTHER, SELFPAY ==
--- NOTE | 2024-09-03 08:54 | MHC.OFFVIS ---
Vital Signs 09/03/24 08:55 Height 5 ft Weight 145 lb BMI 28.3 Intake Visit Reasons: OV- Left Trapezius Pain F/U Intake Note: Bela is a 39 year old female who presents today for a left trapezius pain follow up. Patient reports she is doing dry needling at PT which is helping her pain. Allergies Penicillins Allergy (Verified 09/03/24 08:56) Unknown HPI Comments Details: Patient intiially seen by Ortho, then continued further care under Physiatry (me). She had symptoms suggestive of ulnar neuropathy vs shoulder pathology. MRI shoulder showed tendinosis of supraspinatus and subscapularis, with mild arthritis and AC joint. EMG minimally abnormal. Only abnormality seen was on left LAC and MAC nerves. Rest were within normal. This could raise suspicion for lower trunk plexopathy, but I explained that these are small nerves that are difficult to obtain even in normal subjects/patient's. There was no evidence for ulnar neuropathy. She has done extensive physical therapy. We've done left shoulder subacromial injection and trigger point injections. She had history of CRPS in right ankle from a previous injury. This resolve with topical medications. She has history of Crohn's disease. Unable to tolerate most oral medications. Patient states the shoulder injection and trigger point injections did help. She states she doesn't have as much pain as before. She has bee Been out of work since injury. 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 She has seen Pain Management Dr. Mensah who has recommended PRP injection to shoulder. However that has been denied by . Discharged from [facility] 06/15/24. She started PT at [facility] in [place], doing strengthening and ROM, towards work conditioning, dry needling with them. Still doing dry needling which helps her. Doing work conditioning. She still gets tight after doing strengthening exercises, but making good gains. She's up to 2-3 lbs free weights and yellow bands. Can do overhead 5 lbs per arm. Gets tight after on traps or deltoids, then needing dry needling. PT is scheduled for another 2 weeks. She does her own PT guided exercises on Saturdays too. Had GIOVANNY, cleared for 4-6 weeks , being back to work no restrictions by end august. 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 MSK: Inspection reveals appropriate head and neck positioning. Full shoulder range of motion bilateral. Negative scapular winging. Results Reviewed Results Reviewed: EMG by 01/21/24 IMPRESSION: 1. This is a minimally abnormal study. 2. 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 3. There is no electrodiagnostic evidence for median neuropathy, ulnar neuropathy, or cervical radiculopathy. MRI SHOULDER Ordering Physician: Tomasz Best PA-C Date of Service: 01/26/24 Procedure(s): MR shoulder LT wo con Accession Number(s): [id number] cc: Na Mustafa MD; Tomasz Best PA-C~ EXAMINATION: MR SHOULDER WITHOUT CONTRAST, LEFT CLINICAL INFORMATION: Unspecified injury of muscle and tendon. Patient reports injury, pain. COMPARISON: X-ray 11/10/2023. TECHNIQUE: MRI of the shoulder without contrast was performed on a high-field scanner. FINDINGS: ROTATOR CUFF: Mild heterogeneous signal in the conjoined fibers of the supraspinatus and infraspinatus tendons may reflect mild tendinosis. No measurable tendon defect or retraction is seen. Teres minor is intact. Mild-moderate subscapularis tendinosis, deep surface fraying/ill-defined partial tear No muscle atrophy or fatty in.filtration. BICEPS: Intact. CORACOACROMIAL ARCH: The undersurface of the acromion is curved with no subacromial spur. Minimal acromioclavicular arthritis. LABRUM/CAPSULE: No definite labral tear is seen. Intact inferior capsule. GLENOHUMERAL JOINT/MARROW: No evidence of acute fracture. No suspicious marrow signal changes. No significant joint effusion. MR/MR shoulder LT wo con IMPRESSION: 1. Possible mild tendinosis in the conjoined fibers of the supraspinatus and infraspinatus tendons. No measurable tendon defect or retraction is seen. 2. Mild-moderate subscapularis tendinosis, deep surface fraying/ill-defined partial tear. 3. Minimal acromioclavicular arthritis. I reviewed records from the following: Orthopedics Assessment & Plan Assessment & Plan (1) Myofascial pain: Code(s): M79.18 - Myalgia, other site Category: Medical (2) Biceps tendonitis on left: Code(s): M75.22 - Bicipital tendinitis, left shoulder Category: Medical Plan Continue dry needling with PT and work conditioning. She is making progress. Continue out of work status until September 24. We will see patient that same day, with goal to return FT without restrictions by September. Assessment and plan discussed with patient, and patient was agreeable. All questions were answered thoroughly. Sophia Sosa MD, ANGELINA Board Certified, [place] Board of Physical Medicine and Rehabilitation (ABPMR) Board Certified, [place] Board of Electrodiagnostic Medicine (ABEM) Coding Level of Care Code Est Pt Level 4 (68344) Diagnoses Myofascial pain M79.18 Biceps tendonitis on left M75.22
[2024-09-03 08:55] VITALS: BMI 28.3
== END 2024-09-03 09:16 | disposition home or self-care (01) ==
PROVIDERS: PCP Internal Medicine; Visit Provider Physical Medicine & Rehabilitation
DX: M79.18 Myalgia, other site (principal); M75.22 Bicipital tendinitis, left shoulder
CPT/HCPCS: 99213

== ENCOUNTER → 2024-09-03 08:54 | Outpatient (BNVA) | payer OTHER, SELFPAY | PROVIDERS: PCP Internal Medicine; Visit Provider Physical Medicine & Rehabilitation | DX: M79.18 Myalgia, other site (principal); M75.22 Bicipital tendinitis, left shoulder | CPT/HCPCS: 99212 ==

== ENCOUNTER → 2024-09-24 11:58 | Outpatient (BNVA) | payer OTHER, SELFPAY | PROVIDERS: PCP Internal Medicine; Visit Provider Physical Medicine & Rehabilitation | DX: M79.18 Myalgia, other site (principal); M75.22 Bicipital tendinitis, left shoulder | CPT/HCPCS: 99212 ==

== ENCOUNTER 2024-11-19 08:28 | Outpatient (AMB) | payer OTHER, SELFPAY ==
--- NOTE | 2024-11-19 08:34 | A.OFFVIS_ITS ---
Vital Signs 11/19/24 08:37 Height 5 ft Weight 145 lb BMI 28.3 Intake Visit Reasons: OV- Left Trapezius Pain F/U Intake Note: Bela is a 39 year old right hand dominant female who presents today for a follow up of her left trapezius pain. 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 Patient reports that she has returned to work which is going well. She has o concerns at this time Allergies Penicillins Allergy (Verified 11/19/24 08:37) Unknown Medication List - Last Reconciled 11/19/24 by Sophia Sosa MD lisinopril 5 mg PO DAILY HPI Comments Details: She has done well since returning to work. No new injuries. No pain. No numbness. Full range of motion with flexion/abduction/adduction. Still working on range of motion of internal rotation, with left hand in the back. But overall no pain. 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 Patient was appropriately conversant and oriented. Good historian. MSK: Full range of motion on left shoulder flexion/abduction/external rotation/extension. Lift-off test still slightly weak on the left as compared to the right. But the range of motion on internal rotation is much improved. Assessment & Plan Assessment & Plan (1) Myofascial pain: Code(s): M79.18 - Myalgia, other site Category: Medical (2) Biceps tendonitis on left: Code(s): M75.22 - Bicipital tendinitis, left shoulder Category: Medical Plan Patient has done very well. Discussed how to further strengthen subscapularis. She can do this at home and does not pose any restrictions for work. May continue work without restrictions. No further follow up with me necessary. Assessment and plan discussed with patient, and patient was agreeable. All questions were answered thoroughly. Sophia Sosa MD, ANGELINA Board Certified, [place] Board of Physical Medicine and Rehabilitation (ABPMR) Board Certified, [place] Board of Electrodiagnostic Medicine (ABEM) Coding Level of Care Code Est Pt Level 3 (75876) Diagnoses Myofascial pain M79.18 Biceps tendonitis on left M75.22
[2024-11-19 08:37] VITALS: BMI 28.3
== END 2024-11-19 08:50 | disposition home or self-care (01) ==
LOC: HO.HOS 08:29
PROVIDERS: PCP Internal Medicine; Visit Provider Physical Medicine & Rehabilitation
DX: M79.18 Myalgia, other site (principal); M75.22 Bicipital tendinitis, left shoulder; Z04.2 Encounter for examination and observation following work accident
CPT/HCPCS: 99213

== ENCOUNTER → 2024-11-19 08:28 | Outpatient (BNVA) | payer OTHER, SELFPAY | PROVIDERS: PCP Internal Medicine; Visit Provider Physical Medicine & Rehabilitation | DX: M79.18 Myalgia, other site (principal); M75.22 Bicipital tendinitis, left shoulder | CPT/HCPCS: 99212 ==